=== PATIENT | male | born 1985 | race Two or more races ===

== ENCOUNTER 2016-11-09 07:24 | Emergency (ER) | payer OTHER ==
[2016-11-09 07:29] VITALS: BMI 21.1
[2016-11-09] MEDS ORDERED: KETOROLAC TROMETHAMINE 60 MG/2 ML VIAL IM ONE (07:56)
--- NOTE | 2016-11-09 08:02 | PDOC ---
History of Present Illness - General Chief Complaint: Pain Stated Complaint: NECK/BACK PAIN Time Seen by Provider: 11/09/16 07:51 - History of Present Illness Initial Comments: 11/09/16 08:02 CHIEF COMPLAINT: neck pain HISTORY OF PRESENT ILLNESS: 31 yo M with no PMH presents to ED with neck pain x 3 days. 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 He denies any chest pain or back pain and states that the pain is localized to the left side of his neck. He denies any loss of sensation , nausea, vomiting, diarrhea, change in vision. No recent travel or sick contacts. PAST MEDICAL HISTORY: Denies past medical history FAMILY HISTORY: Denies SOCIAL HISTORY: Current every day smoker, 10 cigarettes daily. Denies alcohol, illicit drug use. SURGICAL HISTORY: Denies ALLERGIES: No known drug allergies REVIEW OF SYSTEMS General/Constitutional: Denies fever or chills. HEENT: Denies change in vision. Denies ear pain or discharge. Denies sore throat. Cardiovascular: Denies chest pain or shortness of breath. Respiratory: Denies cough, wheezing, or hemoptysis. Gastrointestinal: Denies nausea, vomiting, diarrhea or constipation. Denies rectal bleeding. Genitourinary: Denies dysuria, frequency, or change in urination. Musculoskeletal: Left sided neck pain x 3 days, worse today. Skin and breasts: Denies rash or easy bruising. Neurologic: Denies headache, vertigo, loss of consciousness, or loss of sensation. PHYSICAL EXAM General Appearance: Well-appearing, appropriately dressed. No apparent distress. HEENT: EOMI, PERRLA, normal ENT inspection, normal voice, TMs normal, pharynx normal. No conjunctival pallor. No photophobia, scleral icterus. Neck: Reproducible tenderness to left trapezius. No midline tenderness to cervical spine. Supple. Trachea midline. No rigidity, carotid bruit, stridor, lymphadenopathy, or thyromegaly. Respiratory/Chest: Lungs CTAB. Cardiovascular: RRR. S1, S2. Musculoskeletal/Extremities: No midline tenderness to thoracic or lumbar spine. Normal inspection. FROM of all extremities, normal capillary refill. Pelvis Stable. No CVA tenderness. No tenderness to extremities, pedal edema, swelling , erythema or deformity. Integumentary: Appropriate color, dry, warm. No cyanosis, erythema, jaundice or rash Neurologic: customer specialist II-XII intact. Fully oriented, alert. Appropriate mood/affect. Motor strength 5/5. No appreciable EOM palsy, facial droop or sensory deficit. 11/09/16 08:22 Past History - Past Medical History Allergies/Adverse Reactions: Allergies Allergy/AdvReac Type Severity Reaction Status Date / Time No Known Allergies Allergy Verified 11/09/16 07:26 Home Medications: Ambulatory Orders Cyclobenzaprine HCl [Flexeril 10 mg] 10 mg PO HS PRN #5 tablet 11/09/16 Naproxen [Naprosyn -] 250 mg PO BID #14 tablet 11/09/16 - Surgical History Appendectomy: Yes - Psycho/Social/Smoking Cessation Hx Anxiety: No Suicidal Ideation: No Smoking History: Current some day smoker Have you smoked in the past 12 months: No Number of Cigarettes Smoked Daily: 10 Information on smoking cessation initiated: No Hx Alcohol Use: No Drug/Substance Use Hx: No *Physical Exam - Vital Signs Last Vital Signs Temp Pulse Resp BP Pulse Ox 97.7 F 80 18 127/76 98 11/09/16 07:26 11/09/16 07:26 11/09/16 07:26 11/09/16 07:26 11/09/16 07:26 Medical Decision Making - Medical Decision Making 11/09/16 08:06 31 yo M with no PMH presents to ED with neck pain x 3 days. -60 mg Toradol IM Patient reassessed. -250 mg Naproxen bid -Cyclobenzaprine 10 mg hs Advised patient to take medications as prescribed and follow up with ortho if symptoms persist past 3-5 days. Advised patient of signs and symptoms for return to ER; patient verbalized understanding and agrees to plan. *DC/Admit/Observation/Transfer Diagnosis at time of Disposition: Neck strain Qualifiers: Encounter type: initial encounter Qualified Code(s): S16.1XXA - Strain of muscle, fascia and tendon at neck level, initial encounter - Discharge Dispostion Disposition: HOME Condition at time of disposition: Improved Admit: No - Prescriptions Prescriptions: Cyclobenzaprine HCl [Flexeril 10 mg] 10 mg PO HS PRN #5 tablet PRN Reason: Muscle Spasms Naproxen [Naprosyn -] 250 mg PO BID #14 tablet - Referrals Referrals: Arpit Suresh MD [Staff Physician] - - Patient Instructions Printed Discharge Instructions: DI for Neck Pain Additional Instructions: Please take medications as prescribed; do not drive or operate machinery while taking cyclobenzaprine. If your symptoms persist for more than 2-3 days, please follow up with orthopedics for further evaluation (referral provided). If you experience any headache, chest pain, difficulty breathing, change in vision, difficulty speaking or swallowing, or any new or worsening symptoms, please return to the ER.
[2016-11-09] MEDS ORDERED: KETOROLAC TROMETHAMINE 60 MG/2 ML VIAL ONE (08:03)
[2016-11-09] MEDS ORDERED: diazePAM 5 MG TABLET ONE (09:10)
[2016-11-09] MEDS ORDERED: diazePAM 5 MG TABLET PO ONE (09:11)
[2016-11-09 09:41] VITALS: BP 114/72; PULSE 70; TEMP 98.4
[2016-11-09] MEDS ORDERED: diazePAM 5 MG TABLET PO SCH (14:00)
== END 2016-11-09 09:37 | disposition home or self-care (01) ==
LOC: JER 07:24 → JERFT 07:24 → JER 09:37
PROC: 3E0233Z Introduction of Anti-inflammatory into Muscle, Percutaneous Approach (ICD-10-PCS; principal; 2016-11-09)
DX: S16.1XXA Strain of muscle, fascia and tendon at neck level, initial encounter (principal); X50.0XXA Overexertion from strenuous movement or load, initial encounter; X50.3XXA Overexertion from repetitive movements, initial encounter; Y93.89 Activity, other specified; Y92.512 Supermarket, store or market as the place of occurrence of the external cause; Y99.0 Civilian activity done for income or pay
CPT/HCPCS: 96372; 99283-25

== ENCOUNTER 2017-03-13 00:25 | Emergency (ER) | payer OTHER ==
--- NOTE | 2017-03-13 01:13 | PDOC ---
History of Present Illness - General History Source: Patient Exam Limitations: No Limitations - History of Present Illness Initial Comments: 03/13/17 01:30 The patient is a 32 year old male, with no significant past medical history, who presents to the emergency department complaining of a rash to the head and neck for several days. The patient reports he first noted bumps to his neck, which then spread to the back of his head. The patient reports he has noted his pillowcase has several stains where he lays his head. Patient reports clear discharge from the bumps on his neck. Patient states his partner has applied peroxide and hydrocortisone to the rash. Patient denies that his partner has a similar rash. Patient denies any rash to his groin. Patient denies any fever, chills, headache, neck pain, or back pain. Patient denies any recent travel or sick contacts. Allergies: NKDA Past Surgical History: Appendectomy. Social History: Current everyday smoker. No ETOH or recreational drug use. <Trice Welch - Last Filed: 03/13/17 02:04> <Troy Soria - Last Filed: 03/13/17 02:28> - General Stated Complaint: RASH ON NECK AND HEAD Time Seen by Provider: 03/13/17 01:13 Past History <Trice Welch - Last Filed: 03/13/17 02:04> - Surgical History Appendectomy: Yes - Suicide/Smoking/Psychosocial Hx Smoking History: Current some day smoker Have you smoked in the past 12 months: No Number of Cigarettes Smoked Daily: 10 Hx Alcohol Use: No Drug/Substance Use Hx: No <Troy Soria - Last Filed: 03/13/17 02:28> - Past Medical History Allergies/Adverse Reactions: Allergies Allergy/AdvReac Type Severity Reaction Status Date / Time No Known Allergies Allergy Verified 03/13/17 01:33 Home Medications: Ambulatory Orders Cyclobenzaprine HCl [Flexeril 10 mg] 10 mg PO HS PRN #5 tablet 11/09/16 Naproxen [Naprosyn -] 250 mg PO BID #14 tablet 11/09/16 Mupirocin Ointment [Bactroban 2% Ointment -] 1 applic TP BID #1 tube 03/13/17 Terbinafine HCl 250 mg PO DAILY #30 tablet 03/13/17 Review of Systems - Review of Systems Able to Perform ROS?: Yes Comments:: 03/13/17 01:30 CONSTITUTIONAL: No fever, no chills, no fatigue EYES: No visual changes ENT: No ear pain, no sore throat CARDIOVASCULAR: No chest pain, no palpitations RESPIRATORY: No cough, no SOB GI: No abdominal pain, no nausea, no vomiting, no constipation, no diarrhea GENITOURINARY: No dysuria, no frequency, no hematuria MUSCULOSKELETAL: No back pain, no joint pain, no myalgias SKIN: Rash with bumps and associated discharge to head and neck. NEURO: No headache <Trice Welch - Last Filed: 03/13/17 02:04> *Physical Exam - Physical Exam Comments: 03/13/17 01:31 CONSTITUTIONAL: Well-appearing; well-nourished; in no apparent distress HEAD: Normocephalic; atraumatic EYES: PERRL; EOM intact ENMT: External appears normal; normal oropharynx NECK: Supple; non-tender; no cervical lymphadenopathy CARD: Normal S1, S2; no murmurs, rubs, or gallops RESP: Normal chest excursion with respiration; breath sounds clear and equal bilaterally; no wheezes, rhonchi, or rales ABD: Soft, non-distended; non-tender; no palpable organomegaly, no palpable hernias EXT: Normal ROM in all four extremities; non-tender to palpation; distal pulses intact NEURO: No focal neurological deficiencies. <Trice Welch - Last Filed: 03/13/17 02:04> - Physical Exam Comments: 03/13/17 02:20 SKIN: ++ Indurated, excoriated area measuring approximately 3 cm in diameter is noted to the apex of the scalp consistent with kerion. + numerous excoriated lesions to the neck and chin measuring 2-3 mm in diameter covered in white residue <Troy Soria - Last Filed: 03/13/17 02:28> Medical Decision Making - Medical Decision Making 03/13/17 02:24 Patient is a 32-year-old male who presents with signs and symptoms of tinea capitis. Patient's scalp lesion is consistent with a kerion. Patient's facial lesions are likely consistent with superinfection with impetigo. Will treat terbinafine po by mouth for 6 weeks and topical Bactroban for impetigo. Will discharge with dermatology follow-up. <Troy Soria - Last Filed: 03/13/17 02:28> *DC/Admit/Observation/Transfer - Attestations Scribe Attestion: 03/13/17 01:31 Documentation prepared by Trice Welch, acting as hospital medical assistant for Troy Soria MD. <Trice Welch - Last Filed: 03/13/17 02:04> - Attestations Physician Attestion: 03/13/17 02:20 The documentation was prepared by the scribe under my direct supervision. I have reviewed the documentation which correctly represents the findings, medical decision-making and critical action taken by me. <Troy Soria - Last Filed: 03/13/17 02:28> Diagnosis at time of Disposition: Kerion, Impetigo - Discharge Dispostion Disposition: HOME Condition at time of disposition: Stable - Referrals Referrals: Jazmine Solomon MD [Staff Physician] - - Patient Instructions Printed Discharge Instructions: Tinea Capitis, DI for Impetigo Additional Instructions: Your condition requires treatment for up to 6 weeks. Take medication once daily. Follow-up with dermatology and 10-15 days for reevaluation. you will be given additional tablets if fyou require them. You have been provided 30 tablets at this time.
[2017-03-13 01:35] VITALS: BP 137/72; PULSE 80; TEMP 97.6; BMI 21.2
== END 2017-03-13 02:39 | disposition home or self-care (01) ==
LOC: JER 00:25
DX: B35.0 Tinea barbae and tinea capitis (principal); L01.09 Other impetigo
CPT/HCPCS: 99281-25